=== PATIENT | female | born 1935 | race Caucasian/White ===

== ENCOUNTER 2019-02-02 08:09 | Inpatient (IN) | payer MEDICARE, OTHER ==
[2019-02-02] VITALS (7 sets, daily range): BP systolic 94–143; BP diastolic 55–92
[~2019-02-02] VITALS: Ht 157.5 cm; Wt 88.5 kg
[~2019-02-02 08:09] MED LIST: ASPI-605 PO; CARV3.12 PO; DOCU100C36 PO; ERGO500014 PO; ESOM40CA PO; FURO40TA5 PO; IBAN150T16 PO; MAGN400C PO; POTA-10 PO; SENN-18 PO; SIMV10TA6 PO; SIMV20TA6 PO; VALS80TA2 PO; ZOLP10TA6 PO
--- NOTE | 2019-02-02 08:09 | NUR ---
1st contact with patient- AOX4, speaks Luxembourgish but prefers Farsi, diaphoretic with pale skin, c/o abdominal pains & chest pains,+shortness of breath with audible wheezes, Dr Livingston notified.
[2019-02-02] MEDS ORDERED: NITROGLYCERIN OINT 1 GM PACKET TP ONE ×2 (08:23→08:30)
--- NOTE | 2019-02-02 08:25 | NUR ---
PT PLACED ON BIPAP - IPAP 15/EPAP 5, RATE 16, FIO2 100%. PT IS AWAKE AND ALERT AT THIS TIME. PT IS TOLERATING BIPAP AT THIS TIME. ABG TO BE DONE IN AN HOUR. BIPAP CONNECTED TO RED EMERGENCY OUTLET. AMBU BAG IS AT BEDSIDE. WILL CONTINUE TO MONITOR.
[2019-02-02] MEDS ORDERED: MORPHINE SULFATE 2 MG/1 ML DISP.SYRIN ONE (08:28)
[2019-02-02] MEDS ORDERED: MORPHINE SULFATE 2 MG/1 ML DISP.SYRIN IV ONE (08:30)
[2019-02-02] MEDS ORDERED: NITROGLYCERIN IV 250 ML IV PRN (08:30)
[2019-02-02] MEDS ORDERED: LOSARTAN 50 MG (08:45)
[2019-02-02] MEDS ORDERED: ZOLPIDEM 10 MG (08:45)
[2019-02-02] MEDS ORDERED: LYRICA (08:45)
[2019-02-02] MEDS ORDERED: CARVEDILOL 25 MG PO (08:45)
[2019-02-02] MEDS ORDERED: ESOMEPRA MAG CAP 40MG DR (08:45)
[2019-02-02] MEDS ORDERED: [UNRECOGNIZED DRUG - OTHER] (08:46)
[2019-02-02] MEDS ORDERED: IBANDRONATE 150 MG (08:46)
[2019-02-02] MEDS ORDERED: SIMVASTATIN 40 MG (08:46)
[2019-02-02 08:52] LABS: CARBON DIOXIDE 27 mmol/L (21-32); CHLORIDE 103 mmol/L (98-107); GLUCOSE 234 mg/dL (74-106); UREA NITROGEN, BLOOD 17 mg/dL (7-18)
[2019-02-02 08:56] LABS: BASOPHILS # (AUTO) 0.1 K/uL (0.0-8.0); EOSINOPHILS # (AUTO) 0.1 K/uL (0.0-0.7); EOSINOPHILS % (AUTO) 1.8 % (0.0-7.0); HEMATOCRIT 39.4 % (31.2-41.9); HEMOGLOBIN 12.6 g/dL (10.9-14.3); LYMPHOCYTES # (AUTO) 1.7 K/uL (20.0-40.0); LYMPHOCYTES % (AUTO) 23.7 % (20.5-51.5); MEAN CORPUSCULAR HEMOGLOBIN 28.5 uug (24.7-32.8); MEAN CORPUSCULAR HGB CONC 32 g/dL (32.3-35.6); MEAN CORPUSCULAR VOLUME 88.7 fL (75.5-95.3); MONOCYTES # (AUTO) 0.5 K/uL (2.0-10.0); NEUTROPHILS # (AUTO) 4.7 K/uL (1.8-8.9); NEUTROPHILS % (AUTO) 66.5 % (38.5-71.5); PLATELET COUNT (AUTO) 200 K/uL (179-408); RED BLOOD CELL COUNT(AUTO) 4.44 MIL/uL (3.63-4.92); WHITE BLOOD COUNT (AUTO) 7.1 K/uL (3.8-11.8)
[2019-02-02 09:03] LABS: AMYLASE 49 U/L (25-115); LIPASE 99 U/L (73-393)
[2019-02-02 09:05] LABS: ALANINE AMINOTRANSFERASE 50 U/L (14-59); ALKALINE PHOSPHATASE 83 U/L (50-136); ASPARTATE AMINOTRANSFERASE 65 U/L (15-37); BILIRUBIN,DIRECT 0.2 mg/dL (0.0-0.2); BILIRUBIN,TOTAL 0.5 mg/dL (0.2-1.0)
[2019-02-02] MEDS ORDERED: LOSA50TA39 PO (09:07)
[2019-02-02] MEDS ORDERED: KENALOG OINT (09:07)
[2019-02-02] MEDS ORDERED: CALC-903 PO (09:07)
[2019-02-02] MEDS ORDERED: PREG50CA PO (09:07)
[2019-02-02] MEDS ORDERED: IBAN150T16 PO (09:07)
[2019-02-02] MEDS ORDERED: DOCU100C36 PO (09:07)
[2019-02-02] MEDS ORDERED: ONDA8TAB6 PO (09:07)
[2019-02-02] MEDS ORDERED: FUROSEMIDE 20 MG/2 ML VIAL IV ONE (09:15)
--- NOTE | 2019-02-02 09:17 | NUR ---
Patient is in CT scan. Okay to send patient from CT scan to CCU per Dr Livingston.
[2019-02-02] MEDS ORDERED: FUROSEMIDE 40 MG/4 ML VIAL ONE (09:18)
--- NOTE | 2019-02-02 09:40 | NUR ---
Patient in from ER. via carline. On non-rebreather, 15L. vitals as follow: HR of 92, sbp of 123/92, saturation of 99%, and temperature of 98.3 at this kal Addendum: 02/02/19 at 1001 by MIRNA ESPINOSA RN At this time pt. with c/of nausea, vomiting medicated accordingly by ER. juan david. Pulmonary serviced, Dr. Temple in the unit upon pt. arrival to the unit. and made aware of follow up ABG results.
[2019-02-02] MEDS ORDERED: ONDANSETRON 4 MG/2 ML VIAL ONE (09:43)
--- NOTE | 2019-02-02 09:44 | NUR ---
enroute to CCU (from CT scan) patient c/o nausea, Dr Livingston notified
[2019-02-02] MEDS ORDERED: ONDANSETRON 4 MG/2 ML VIAL IV ONE (09:45)
--- NOTE | 2019-02-02 09:47 | NUR ---
Patient went to CT scan. Patient can go to CCU (as [facility] overflow) after CT scan per Dr Livingston & [facility] hospitalist.
[2019-02-02 09:53] LABS: ABG BASE EXCESS 1.7 mmol/L; ABG HCO3 29.6 mmol/L; ABG PCO2 62.1 mmHg (35.0-45.0); ABG PH 7.296 (7.350-7.450); ABG PO2 372.3 mmHg (75.0-100.0); ABG SITE RIGHT RADIAL; MetHb 0.4 % (0.0-1.5); O2Hb 98.4 % (94.0-97.0)
[2019-02-02] MEDS ORDERED: LEVOFLOXACIN 500 MG/D5W 500 MG in PREMIXED 1 EACH IV SCH ×2 (10:00→10:30)
[2019-02-02] MEDS ORDERED: METRONIDAZOLE 500 MG/NS 100ML 500 MG in PREMIXED 1 EACH IV SCH (10:00)
--- NOTE | 2019-02-02 10:01 | NUR ---
Attending Elizabeth. notified of pt's admission to the unit and also notified of pt's family request to speak to him. Awaiting for him as stated on his way to see patient.
[2019-02-02] MEDS ORDERED: LEVOFLOXACIN 500 MG/D5W 100 ML ONE (10:03)
[2019-02-02] MEDS ORDERED: METRONIDAZOLE 500 MG/NS 100ML 100 ML IV ONE (10:03)
--- NOTE | 2019-02-02 10:15 | NUR ---
Attending Katharine in the unit and spoke with pt's daughters, and son who remain at bedside. He also spoke with acetylene torch burner Dr. Temple to see patient.
--- NOTE | 2019-02-02 10:17 | NUR ---
1st dose of IV Levaquin started@[id number], endorsed to YAYO Salazar
[2019-02-02] MEDS ORDERED: Z GUARD REMEDY PASTE 57 GM TUBE TOP PRN (10:30)
[2019-02-02] MEDS ORDERED: HYDROCODONE/APAP 5-325MG TABLET PO PRN (10:30)
[2019-02-02] MEDS ORDERED: ACETAMINOPHEN 325 MG TABLET PO PRN (10:30)
[2019-02-02] MEDS ORDERED: ALBUTEROL SULFATE 2.5 MG/3 ML NEBU NEB PRN (10:30)
[2019-02-02] MEDS ORDERED: MAGNESIUM HYDROXIDE 30 ML LIQUID UDC PO PRN (10:30)
[2019-02-02] MEDS: CARVEDILOL 25 MG TABLET PO SCH ×2 (11:42→17:25)
[2019-02-02] MEDS: ENOXAPARIN SODIUM 40 MG/0.4 ML DISP.SYRIN SQ SCH (11:43)
[2019-02-02] MEDS: ONDANSETRON 4 MG/2 ML VIAL IV PRN (12:30)
[2019-02-02] MEDS: DOCUSATE SODIUM 100 MG CAPSULE PO SCH ×2 (12:37→17:25)
--- NOTE | 2019-02-02 14:08 | NUR ---
Cardiology services in the unit to examine patient.
[2019-02-02] MEDS: FUROSEMIDE 40 MG/4 ML VIAL IV SCH ×2 (14:39→17:23)
[2019-02-02 16:05] LABS: *BILIRUBIN,URIN NEGATIVE (NEGATIVE); *BLOOD, URINE NEGATIVE (NEGATIVE); *CLARITY,URINE CLEAR (CLEAR); *COLOR,URINE YELLOW (YELLOW); *KETONES,URINE NEGATIVE (NEGATIVE); *UROBILINOGEN,URINE 0.2 E.U./dl (NORMAL); LEUKOCYTE ESTERASE ,URINE NEGATIVE (NEGATIVE); NITRITE, URINE NEGATIVE (NEGATIVE); UGLUCOSE NEGATIVE (NEGATIVE)
--- NOTE | 2019-02-02 16:45 | NUR ---
GI services Dr. Hdz in the unit to examine patient.
[2019-02-02 16:59] LABS: RBC,URINE 0-3 /HPF (0-3); SQUAMOUS EPITHELIAL CELL,UR FEW /HPF (NONE SEEN); WBC,URINE 0-3 /HPF (0-3)
[2019-02-02] MEDS ORDERED: CARVEDILOL 25 MG PO SCH (17:00)
[2019-02-02] MEDS: MIRALAX 17 GM POWD.PACK PO SCH (17:25)
[2019-02-02] MEDS: METRONIDAZOLE 500 MG/NS 100ML 500 MG in PREMIXED 1 EACH IV SCH (17:28)
--- NOTE | 2019-02-02 19:44 | NUR ---
Received pt HOB elevated, AxO x4. Pt on 3L NC, O2 sat 97%. No respiratory distress noted. Discussed and reviewed plan of care with pt, pt verbalizes understanding. Pt has no complains of pain or discomfort at this time. Tele noted to be SR with BBB and HR of 70. IV on R AC 20g intact and patent. Assessment completed. Strict I&O's and safety precautions observed. Will continue to monitor. Addendum: 02/02/19 at 2140 by INDIA RODRIGEZ RN Amended: Links added.
[2019-02-02] MEDS: SIMVASTATIN 10 MG TABLET PO SCH (20:31)
--- NOTE | 2019-02-02 21:00 | NUR ---
Daughter, ELVA, at bedside.
[2019-02-02] MEDS: ZOLPIDEM 5 MG TABLET PO PRN (21:49)
--- NOTE | 2019-02-02 22:00 | NUR ---
Spoke to pt regarding code status. Pt stated she wants to be DNR/DNI. Notified attending physician, ARISTIDES MCKINLEY. aware and code status ordered. Will continue plan of care.
--- NOTE | 2019-02-02 22:30 | NUR ---
Pt refused SCDs at this time. Discussed risks and benefits. Continue to monitor.
[2019-02-03] VITALS (8 sets, daily range): BP systolic 95–156; BP diastolic 41–75
[2019-02-03] MEDS: METRONIDAZOLE 500 MG/NS 100ML 500 MG in PREMIXED 1 EACH IV SCH ×3 (01:13→17:33)
[2019-02-03] MEDS: ZOLPIDEM 5 MG TABLET PO PRN ×2 (01:21→21:11)
[2019-02-03 06:26] LABS: BASOPHILS % (AUTO) 0.3 % (0.0-2.0); EOSINOPHILS # (AUTO) 0.1 K/uL (0.0-0.7); EOSINOPHILS % (AUTO) 0.6 % (0.0-7.0); HEMOGLOBIN 11.6 g/dL (10.9-14.3); LYMPHOCYTES # (AUTO) 1.5 K/uL (20.0-40.0); LYMPHOCYTES % (AUTO) 16.4 % (20.5-51.5); MEAN CORPUSCULAR HEMOGLOBIN 28.9 uug (24.7-32.8); MEAN CORPUSCULAR HGB CONC 33 g/dL (32.3-35.6); MEAN CORPUSCULAR VOLUME 87.4 fL (75.5-95.3); MONOCYTES # (AUTO) 0.8 K/uL (2.0-10.0); MONOCYTES % (AUTO) 8.4 % (0.0-11.0); NEUTROPHILS # (AUTO) 6.8 K/uL (1.8-8.9); NEUTROPHILS % (AUTO) 74.3 % (38.5-71.5); PLATELET COUNT (AUTO) 180 K/uL (179-408); RED BLOOD CELL COUNT(AUTO) 4.01 MIL/uL (3.63-4.92); WHITE BLOOD COUNT (AUTO) 9.2 K/uL (3.8-11.8)
[2019-02-03 06:39] LABS: ALANINE AMINOTRANSFERASE 44 U/L (14-59); ALKALINE PHOSPHATASE 70 U/L (50-136); ASPARTATE AMINOTRANSFERASE 26 U/L (15-37); BILIRUBIN,DIRECT 0.1 mg/dL (0.0-0.2); BILIRUBIN,TOTAL 0.4 mg/dL (0.2-1.0); CARBON DIOXIDE 38 mmol/L (21-32); CHLORIDE 101 mmol/L (98-107); CHOLESTEROL 127 mg/dL (<200); CREATININE 1.1 mg/dL (0.6-1.3); GLUCOSE 140 mg/dL (74-106); HDL CHOLESTEROL 42 mg/dL (40-60); MAGNESIUM 1.8 mg/dL (1.8-2.4); PHOSPHOROUS 3.9 mg/dL (2.5-4.9); POTASSIUM 3.3 mmol/L (3.5-5.1); TOTAL PROTEIN, SERUM 6.3 g/dL (6.4-8.2); TRIGLYCERIDES 124 MG/DL (30-150); UREA NITROGEN, BLOOD 19 mg/dL (7-18)
[2019-02-03 06:49] LABS: THYROID STIMULATING HORMONE 1.615 mIU/mL (0.358-3.740)
[2019-02-03] MEDS: PANTOPRAZOLE SODIUM 40 MG TABLET.DR PO SCH (06:52)
--- NOTE | 2019-02-03 07:30 | NUR ---
report received from Jim ZEE. 83 yr old female was admitted on 02/02/19 for shortness of breath. on 3liters nasal cannula.IV michellene via right ac #20. ekg sinus rhythm Addendum: 02/03/19 at 1052 by FABIO RYAN RN Amended: Links added.
[2019-02-03 08:30] LABS: ABG HCO3 34.2 mmol/L; ABG PCO2 55.9 mmHg (35.0-45.0); ABG PH 7.405 (7.350-7.450); ABG PO2 112.4 mmHg (75.0-100.0); ABG SITE RIGHT RADIAL; ABG TOTAL HEMOGLOBIN 11.9 G/dL (12.0-16.0); MetHb 0.3 % (0.0-1.5); O2Hb 97.1 % (94.0-97.0); VENT MODE Nasal Cannula
[2019-02-03] MEDS: DOCUSATE SODIUM 100 MG CAPSULE PO SCH ×3 (08:54→17:36)
[2019-02-03] MEDS: LOSARTAN POTASSIUM 50 MG TABLET PO SCH (08:55)
[2019-02-03] MEDS: ASPIRIN EC 81 MG TABLET.DR PO SCH (08:56)
[2019-02-03] MEDS: CARVEDILOL 25 MG TABLET PO SCH ×2 (08:56→17:34)
[2019-02-03] MEDS: FUROSEMIDE 40 MG/4 ML VIAL IV SCH (08:57)
[2019-02-03] MEDS: ENOXAPARIN SODIUM 40 MG/0.4 ML DISP.SYRIN SQ SCH (08:58)
[2019-02-03] MEDS: CALCIUM CARBONATE 600 MG TABLET PO SCH (09:00)
[2019-02-03] MEDS ORDERED: Medication Not On Formulary EA (Esomeprazole Mag Trihydrate (Nexium) 40 MG) PO SCH (09:00)
[2019-02-03] MEDS ORDERED: POTASSIUM CHLORIDE 20 MEQ TAB.PRT.SR PO ONE (09:30)
[2019-02-03] MEDS: MIRALAX 17 GM POWD.PACK PO SCH (09:39)
[2019-02-03] MEDS: PREGABALIN 50 MG CAPSULE PO SCH (09:40)
[2019-02-03] MEDS: ONDANSETRON 4 MG/2 ML VIAL IV PRN (09:52)
--- NOTE | 2019-02-03 10:00 | NUR ---
am meds given. lasix given. unble to void, catheter attempted to be inserted but unsuccessful, bladder scan done.bladder is distended bladder scanned of 670 ml of urine. scanned for 670 ml of fluid in the bladder. call to MARIA D Ken. informed of patient's condition Addendum: 02/03/19 at 1058 by FABIO RYNA RN Amended: Links added.
[2019-02-03] MEDS: LEVOFLOXACIN 250MG /D5W 250 MG in PREMIXED 1 EACH IV SCH (10:47)
--- NOTE | 2019-02-03 11:40 | NUR ---
SBAR REPORT GIVEN TO Mer YOEDR RN. transferred to room 312 by bed and o2 Addendum: 02/03/19 at 1235 by FABIO RYAN RN Amended: Links added.
--- NOTE | 2019-02-03 12:00 | NUR ---
Received patient from CCU, pictures taken of wounds between toes. Patient made comfortable, and oriented to room. Patient reports pain in legs and insists that she must ambulate. Family member at bedside got patient up to bedside with assist, too weak to get up.
[2019-02-03] MEDS ORDERED: FUROSEMIDE 40 MG/4 ML VIAL IV SCH (17:00)
--- NOTE | 2019-02-03 19:07 | NUR ---
Patient cooperative with care, no distress noted at this time, bed in low position, side rails up x2. bed alarm on. daughter at bedside.
--- NOTE | 2019-02-03 19:25 | NUR ---
RECEIVED PT AWAKE, ALERT AND ORIENTEDX3.DAUGHTER AT BEDSIDE. PT SHOWS NO SIGNS OF ACUTE DISTRESS. PT IV INTACT. SANDHU CATH INTACT AND DWELLING WELL. SAFETY AND COMFORT PROVIDED. WILL CONTINUE TO MONITOR.
[2019-02-03] MEDS: SIMVASTATIN 10 MG TABLET PO SCH (21:10)
[2019-02-04 00:31] VITALS: BP 102/63
[2019-02-04] MEDS: METRONIDAZOLE 500 MG/NS 100ML 500 MG in PREMIXED 1 EACH IV SCH ×2 (01:24→10:13)
[2019-02-04 05:42] VITALS: BP 143/73
[2019-02-04] MEDS: PANTOPRAZOLE SODIUM 40 MG TABLET.DR PO SCH (06:00)
--- NOTE | 2019-02-04 06:37 | NUR ---
PT SLEPT INTERMITTENTLY. PRESCRIBED MEDICATION GIVEN AND PT TOLERATED IT WELL.COOPERATIVE WITH CARE. IV INTACT AND PATENT. SANDHU CATH INTACT AND DWELLING WELL. SAFETY AND COMFORT PROVIDED. ALL NEEDS ARE MET.. WILL ENDORSE TO INCOMING NURSE FOR CONTINUITY OF CARE.
[2019-02-04 06:58] LABS: CARBON DIOXIDE 38 mmol/L (21-32); CHLORIDE 102 mmol/L (98-107); CREATININE 0.9 mg/dL (0.6-1.3); GLUCOSE 133 mg/dL (74-106); UREA NITROGEN, BLOOD 17 mg/dL (7-18)
--- NOTE | 2019-02-04 07:10 | NUR ---
RECEIVED PATIENT IN BED LAYING COMFORTABLE, WITH HOB SEMIFOWLERS. SIDE RAILS UP X2, BED ON LOW POSITIONS, NO SOB, NO PAIN NOTED AT THIS TIME. IV INTACT AND PATENT, WILL CONTINUE TREATMENT PLAN AND CONTINUE TO MONITOR.
[2019-02-04] MEDS ORDERED: FUROSEMIDE 40 MG/4 ML VIAL IV ONE (08:15)
[2019-02-04] MEDS ORDERED: FUROSEMIDE 40 MG TABLET PO SCH (09:00)
[2019-02-04] MEDS: CALCIUM CARBONATE 600 MG TABLET PO SCH (09:58)
[2019-02-04] MEDS: CARVEDILOL 25 MG TABLET PO SCH ×2 (09:58→18:05)
[2019-02-04] MEDS: PREGABALIN 50 MG CAPSULE PO SCH (09:59)
[2019-02-04] MEDS: MIRALAX 17 GM POWD.PACK PO SCH (09:59)
[2019-02-04] MEDS: ASPIRIN EC 81 MG TABLET.DR PO SCH (09:59)
[2019-02-04] MEDS: LOSARTAN POTASSIUM 50 MG TABLET PO SCH (09:59)
[2019-02-04] MEDS: DOCUSATE SODIUM 100 MG CAPSULE PO SCH ×3 (09:59→17:09)
[2019-02-04] MEDS: ENOXAPARIN SODIUM 40 MG/0.4 ML DISP.SYRIN SQ SCH (10:00)
[2019-02-04] MEDS ORDERED: BISACODYL 10 MG SUPP.RECT RC ONE (10:00)
[2019-02-04] MEDS: LEVOFLOXACIN 250MG /D5W 250 MG in PREMIXED 1 EACH IV SCH (10:45)
[2019-02-04 11:36] VITALS: BP 135/56
[2019-02-04] MEDS: METRONIDAZOLE 500 MG TABLET PO SCH ×2 (14:34→21:28)
[2019-02-04 15:06] VITALS: BP 127/51
[2019-02-04 17:46] VITALS: BP 144/67
--- NOTE | 2019-02-04 18:31 | NUR ---
PATIENT IN THE CHAIR, SITTING COMFORTABLY WITH VISITOR. NO S/S SOB, NO C/O PAIN NOTED AT THIS TIME. PATIENT IV INTACT AND PATENT. PATIENT KEPT CLEAN AND DRY AT ALL TIMES. WILL CONTINUE TREATMENT PLAN AND CONTINUE TO MONITOR WITH THE WEB DESIGNER DEVELOPER NURSE.
--- NOTE | 2019-02-04 19:35 | NUR ---
Received patient sitting up at bedside chair, patient alert and oriented x 4 and ambulates with assist. No distress noted. patient has oxygen support at 1lpm via nasal cannula, tolerated. IV access is at right antecubital vein, patent and intact. With jiménez catheter to urine bag, draining clear yellow urine in adequate amount. Helped patient transfer to bed. Bed in low position, locked, side rails up x 3, per patient request. Noise and lights subdued. Will continue to monitor.
[2019-02-04] MEDS: SIMVASTATIN 10 MG TABLET PO SCH (20:46)
[2019-02-04 20:48] VITALS: BP 146/67
[2019-02-04] MEDS: ZOLPIDEM 5 MG TABLET PO PRN (21:28)
[2019-02-05 00:25] VITALS: BP 129/52
[2019-02-05 05:12] VITALS: BP 162/73
--- NOTE | 2019-02-05 06:18 | NUR ---
Patient fell asleep after taking ambien and slept intermittently throughout the night. No distress noted. Patient still with oxygen support at 1lpm via nasal cannula, tolerated. IV access atill at right antecubital vein, patent and intact. With jiménez catheter to urine bag, draining clear yellow urine in adequate amount. Patient able to ambulate with assist. Ensured safety and comfort.
[2019-02-05] MEDS: PANTOPRAZOLE SODIUM 40 MG TABLET.DR PO SCH (06:30)
[2019-02-05] MEDS: METRONIDAZOLE 500 MG TABLET PO SCH ×2 (06:30→13:37)
--- NOTE | 2019-02-05 06:30 | NUR ---
Blood pressure still elevated will give patient her carvedilol and will endorse to oncoming day shift nurse for close monitoring of blood pressure.
[2019-02-05] MEDS: ONDANSETRON 4 MG/2 ML VIAL IV PRN (06:49)
[2019-02-05] MEDS: CARVEDILOL 25 MG TABLET PO SCH (07:15)
--- NOTE | 2019-02-05 07:15 | NUR ---
PATIENT RECEIVED ON BED, RESTING, NO ACUTE DISTRESS NOTED ON TELE SR. ON O2 @ 1LPM VIA NC. WELL TOLERATED. IV ACCESS ON RIGHT AC #20 INTACT AND PATENT. FC IN PLACE AND DRAINING YELLOW URINE. AMBULATORY BRP NO COMPLAINTS OF PAIN AT THIS TIME. COMFORT MEASURES PROVIDED. SAFETY PRECS OBSERVED AT ALL TIMES. CALL LIGHT WITHIN REACH. WILL CONTINUE TO MONITOR CLOSELY.
[2019-02-05] MEDS ORDERED: FUROSEMIDE 40 MG TABLET PO SCH (09:00)
[2019-02-05] MEDS: MIRALAX 17 GM POWD.PACK PO SCH (09:00)
[2019-02-05] MEDS: DOCUSATE SODIUM 100 MG CAPSULE PO SCH ×3 (09:03→13:39)
[2019-02-05] MEDS: ASPIRIN EC 81 MG TABLET.DR PO SCH (09:03)
[2019-02-05] MEDS: CALCIUM CARBONATE 600 MG TABLET PO SCH (09:03)
[2019-02-05] MEDS: PREGABALIN 50 MG CAPSULE PO SCH (09:03)
[2019-02-05] MEDS: ENOXAPARIN SODIUM 40 MG/0.4 ML DISP.SYRIN SQ SCH (09:05)
[2019-02-05] MEDS ORDERED: LEVOFLOXACIN 500 MG TABLET PO SCH (10:00)
[2019-02-05] MEDS: LOSARTAN POTASSIUM 50 MG TABLET PO SCH (10:32)
[2019-02-05 11:40] VITALS: BP 140/61
[2019-02-05] MEDS ORDERED: METR-147 PO (14:20)
[2019-02-05] MEDS ORDERED: POLY17PO4 PO (14:20)
[2019-02-05] MEDS ORDERED: LEVO500T2 PO (14:20)
--- NOTE | 2019-02-05 15:40 | NUR ---
PATIENT DISCHARGED TO HOME IN STABLE CONDITION, W/ HOME HEALTH. DISCHARGE PAPERS AND INSTRUCTIONS GIVEN AND EXPLAINED TO PATIENT. PRESCRIPTIONS GIVEN, IV ACCESS REMOVED. IV CATHETER INTACT. DC PICS TAKEN AND PLACED IN CHART PATIENT BROUGHT DOWN IN WHEELCHAIR BY PROFESSOR OF BUSINESS ADMINISTRATION. LEFT FACILITY VIA PRIVATE CAR WITH DAUGHTER.
[2019-02-08] MEDS ORDERED: ERGOCALCIFEROL 50,000 UNIT CAPSULE PO SCH (09:00)
[2019-03-04] MEDS ORDERED: Medication Not On Formulary EA (Ibandronate Sodium (Boniva) 150 MG) PO SCH (09:00)
== END 2019-02-05 15:40 | disposition home health service (06) | DRG 291 ==
LOC: ER 08:09 → CCU 09:35 → MEDSURG3 02-03 12:00 → TELE3 02-03 19:30
PROVIDERS: ADMIT Nurse Practitioner Acute Care; ATTEND Nurse Practitioner Acute Care
PROC: 5A09357 Assistance with Respiratory Ventilation, Less than 24 Consecutive Hours, Continuous Positive Airway Pressure (ICD-10-PCS; principal; 2019-02-02)
DX: I11.0 Hypertensive heart disease with heart failure (principal); I50.23 Acute on chronic systolic (congestive) heart failure; J96.02 Acute respiratory failure with hypercapnia; J96.01 Acute respiratory failure with hypoxia; E87.2 Acidosis; E66.2 Morbid (severe) obesity with alveolar hypoventilation; E44.1 Mild protein-calorie malnutrition; J98.11 Atelectasis; I08.3 Combined rheumatic disorders of mitral, aortic and tricuspid valves; I42.9 Cardiomyopathy, unspecified; Z85.831 Personal history of malignant neoplasm of soft tissue; Z92.3 Personal history of irradiation; Z85.3 Personal history of malignant neoplasm of breast; Z88.1 Allergy status to other antibiotic agents; Z88.0 Allergy status to penicillin; Z68.35 Body mass index [BMI] 35.0-35.9, adult; I44.7 Left bundle-branch block, unspecified; I70.0 Atherosclerosis of aorta; K21.9 Gastro-esophageal reflux disease without esophagitis; E87.6 Hypokalemia; K62.89 Other specified diseases of anus and rectum; K59.00 Constipation, unspecified; K80.20 Calculus of gallbladder without cholecystitis without obstruction; Z96.653 Presence of artificial knee joint, bilateral; Z90.710 Acquired absence of both cervix and uterus; M19.90 Unspecified osteoarthritis, unspecified site; Z79.1 Long term (current) use of non-steroidal anti-inflammatories (NSAID); K27.9 Peptic ulcer, site unspecified, unspecified as acute or chronic, without hemorrhage or perforation; T39.395A Adverse effect of other nonsteroidal anti-inflammatory drugs [NSAID], initial encounter; Y92.019 Unspecified place in single-family (private) house as the place of occurrence of the external cause; K29.70 Gastritis, unspecified, without bleeding; M32.9 Systemic lupus erythematosus, unspecified; E78.5 Hyperlipidemia, unspecified; I25.10 Atherosclerotic heart disease of native coronary artery without angina pectoris; D17.5 Benign lipomatous neoplasm of intra-abdominal organs; E11.65 Type 2 diabetes mellitus with hyperglycemia; M48.061 Spinal stenosis, lumbar region without neurogenic claudication; Z79.82 Long term (current) use of aspirin; R74.0 Nonspecific elevation of levels of transaminase and lactic acid dehydrogenase [LDH]; R07.9 Chest pain, unspecified; Z98.42 Cataract extraction status, left eye; Z98.41 Cataract extraction status, right eye; Z87.81 Personal history of (healed) traumatic fracture
CPT/HCPCS: 36415; 36600; 70030-TC; 71045; 76705; 83605; 83690; 83735; 84100; 84443; 85025; 85730; 86850; 86900; 86901; 87040; 87086; 93005; 93307; 97116; 97530; A4663; G0378; J1650; J1940; J1956; J2270; J2405; J3490; J7040